=== PATIENT | female | born 1985 | race Asian ===

== ENCOUNTER 2022-06-11 16:37 | Outpatient (CLI) | payer MEDICAID, SELFPAY ==
[2022-06-11 10:31] LABS: Albumin* 4.3 g/dL (3.3-5.0); Chloride* 105 mmol/L (96-114)
[2022-06-11 10:32] LABS: Potassium* 4.3 mmol/L (3.6-5.1); Sodium* 140 mmol/L (135-149)
[2022-06-11 10:34] LABS: Alanine Aminotransferase* 17 U/L (4-35); Alkaline Phosphatase* 63 U/L (40-150); Aspartate Amino Transferase* 26 U/L (12-35); Bilirubin Total* 0.7 mg/dL (0.1-1.5); Blood Urea Nitrogen* 14 mg/dL (5-24); Carbon Dioxide* 27 mmol/L (20-32); Cholesterol* 188 mg/dL (90-199); Creatinine* 0.7 mg/dL (0.5-1.5); Estimated Glomerular Filt Rate 113 ml/min; Glucose* 96 mg/dL (60-115); Total Protein* 7.3 g/dL (6.0-8.3); Triglycerides* 133 mg/dL (40-149)
[2022-06-11 10:35] LABS: Calcium* 8.9 mg/dL (8.4-10.6); HDL Cholesterol* 48 mg/dL (>=50); LDL Cholesterol Calculated 113 mg/dL (<100)
== END 2022-06-11 16:38 | disposition home or self-care (01) ==
PROVIDERS: PCP Family Medicine; Visit Provider Family Medicine
DX: Z01.419 Encounter for gynecological examination (general) (routine) without abnormal findings (principal); R53.83 Other fatigue; E78.5 Hyperlipidemia, unspecified; Z86.2 Personal history of diseases of the blood and blood-forming organs and certain disorders involving the immune mechanism; Z13.6 Encounter for screening for cardiovascular disorders
CPT/HCPCS: 80053; 80061

== ENCOUNTER 2023-01-16 15:15 | Outpatient (RCR) | payer MEDICAID, SELFPAY ==
--- NOTE | 2022-11-11 10:59 | PT.OPEX ---
Please review and sign the attached PT evaluation completed on 11/11/22. Thank you. PT [place] Outpatient Eval PT [facility] Outpatient Eval Start: 11/11/22 07:39 Freq: Status: Active Protocol: Document 11/11/22 07:56 TLQ (Rec: 11/11/22 10:09 TLQ [id number]) E-signed By Britta Valente DPSd Physical Therapy Outpatient Evaluation Insurance Information Insurance Name Medicaid,[facility] Insurance Information/Comments [facility] Medicaid Plan Medical Diagnosis Pain in unspecified shoulder Treating Diagnosis Pain in right shoulder Muscle weakness Referring MD Bowman Krystina Frazier has had right shoulder pain since August,. Symptoms began after reaching behind her while seated in the car. She has two young kids who she has to pickling grader and reach for in the car on a daily basis. She had x-rays taken of her right shoulder in September,, reports no significant finding were found . She has previously seen a chiropractor for these symptoms, from which she only found short-term relief. Other pain relief tactics have included Advil and application of salonpas patches. Pain is primarily located on the side/ back of her right shoulder and increases with reaching, especially behind her back, and when holding her shoulders in one position for an extended period of time (ex: knitting). She states while the pain does not prevent her from participating in her daily activities, the pain is present with many of her activities. Her goal for PT is to learn exercises and stretches that will help decrease this pain. She has no prior history of injury to her right shoulder. Pain Comments 6-05/05 with reaching Current Work Status Router Machine Operator Precautions Therapy Limitations/Systems Review Not Limited Objective Range of Motion R shoulder AROM: flexion - 168 degrees abduction - 165 degrees, pain at end-range internal rotation - T3 mild pain external rotation - T8 moderate pain Strength Shoulder strength: flexion - L 5, R 4 mild pain abduction - L 5, R 4+ mild pain internal rotation - L 5, R 4+ mild pain external rotation - L 5, R 4 pain retraction - L 5, R 4 elevation - 5 B depression - L 5, R 4 Elbow: flexion - L 5, R 4+ mild pain extension - L 5, R 4+ pain Palpation TTP: R infraspinatus, teres minor, proximal bicep/tendon, latissimus dorsi Normal GH mobility, mild pain with posterior glide on R Other/Pertinent Objective Acromioclavicular shear test ( +) on R for anterior pain Vázquez-Wilson test (+) on R for posterior pain Neer impingement test (-) on R [place]'s active compression test (+) on R for superior pain Empty can (supraspinatus) test (+) on R for superior/ posterior pain, able to lift off Lift-off (subscapularis) test (+) for pain Functional Test Performed & Score SPADI: pain 48% disability 12.5% total 34/130 Assessment Assessment/Impression Karin is a 37 year old female who presents to physical therapy today with pain in her right shoulder, pain has been present for about 2 months duration. Symptoms began after she reached behind her in the car to reach for one of her kids, before this incident she had no prior injuries to her right shoulder. She has tried chiropractic treatment, salonpas patches, and Advil to manage her symptoms. An x-ray of her right shoulder was taken in September, with no significant findings. Signs and symptoms present today are likely related to rotator cuff and bicipital tendonitis, patient able to demonstrate full functional right shoulder AROM but has increased pain with active movement and resistive testing. Mild weakness present in the right upper extremity. She will benefit from skilled physical therapy interventions for increased strength, stability, and pain-free mobility to return to PLOF. Primary Functional Limitations right shoulder pain, lifting, reaching behind back, knitting , muscle weakness Plan of Care Rehabilitation Potential Good Physical Therapy Goals In 3-4 visits: - Subjective reports of pain will decrease from 7/10 to 4/ 10 for increased tolerance to shoulder positioning needed for knitting. In 6-8 visits: - Subjective reports of pain with activity will decrease to <2/10 at worst to tolerate reaching for her kids while seated in the car. - Right shoulder gross strength will increase to 5/5 to tolerate lifting her kids. - Karin will demonstrate full functional R shoulder AROM without increase in pain. - Karin will adhere to a HEP consisting of upper extremity stretches and strength exercises to manage her symptoms IND. Treatment Plan/Direct Interventions Ice/Cold/Vasopneumatic,Manual Therapy,Neuromuscular Re-ed, Self-Care/Home Management, Therapeutic Activities, Therapeutic Exercises Frequency/Duration 1x/week for 6-8 visits Patient Will Be Discharged From Therapy Completion of LTG(s),Skills Plateau,Independent w/HEP, Independently Progressing Evaluation Billing Untimed Code Treatment Minutes 22 Complexity Low Certification Information Initial Certification Date 11/11/22 Ending Certification Date 01/10/23 Provider Signature Shows Agreement With POC & Medical Necessity Physician Signature & Date Requested Please Sign/Date Here Physician Comment/Change : Physician NPI Number #
== END 2023-01-31 12:31 | disposition home or self-care (01) ==
PROVIDERS: PCP Family Medicine; Visit Provider Family Medicine
DX: M25.511 Pain in right shoulder (principal); M62.81 Muscle weakness (generalized); Z51.89 Encounter for other specified aftercare
CPT/HCPCS: 97110; 97140; 97161

== ENCOUNTER 2023-09-10 09:38 | Outpatient (CLI) | payer MEDICAID, SELFPAY | END 2023-09-10 09:39 | disposition home or self-care (01) | PROVIDERS: PCP Family Medicine; Visit Provider Family Medicine | DX: Z00.00 Encounter for general adult medical examination without abnormal findings (principal); E78.5 Hyperlipidemia, unspecified; K59.09 Other constipation; Z13.220 Encounter for screening for lipoid disorders | CPT/HCPCS: 80053; 80061 ==

== ENCOUNTER 2025-08-25 08:54 | Outpatient (CLI) | payer BC, SELFPAY | END 2025-08-25 08:55 | disposition home or self-care (01) | PROVIDERS: PCP Family Medicine; Visit Provider Obstetrics & Gynecology | DX: L70.9 Acne, unspecified (principal); N91.2 Amenorrhea, unspecified; Z13.1 Encounter for screening for diabetes mellitus; Z13.6 Encounter for screening for cardiovascular disorders | CPT/HCPCS: 80061; 82947; 83001; 84270; 84402; 84403; 84443 ==